=== PATIENT | male | born 1995 | race Caucasian/White ===

== ENCOUNTER 2022-10-09 16:21 | Emergency (ER) | payer SELFPAY ==
[2022-10-09 16:26] VITALS: BP 155/89; PULSE 98; RESP 18; TEMP 36.7; O2SAT 99
--- NOTE | 2022-10-09 16:27 | ED_ITS ---
HPI - General Adult General Chief complaint: Wound/Laceration Stated complaint: Hand laceration Time Seen by Provider: 10/09/22 16:25 History of Present Illness HPI narrative: Sabino is a 27M with a PM of ADD and KELLEN that presented to the ED after sustaining a laceration from a stainless steel burring tool on his left hand. He has no other injuries. He still has sensation and can move all of his fingers. He is due for a tetanus vaccine. Related Data Allergies Allergy/AdvReac Type Severity Reaction Status Date / Time No Known Allergies Allergy Verified 10/09/22 16:24 Review of Systems Review of Systems: All systems reviewed & are unremarkable except as noted in HPI and below PMFSH Past Medical History Medical History Dyslipidemia KELLEN (obstructive sleep apnea) Family History Family History Mother No problems noted. Father No problems noted. Social History Social History Smoking status: Never smoker Alcohol intake: never Drinks per week: 6 Substance use: never Living arrangements: with family Occupation/Education: occupation Gender identity (if verbalized by the patient): Male Exam Const: General: healthy appearing and no acute distress Nutritional Appearance: well nourished Orientation/consciousness: patient oriented x3 HENMT: Head: normal to inspection Ears: external ears normal Face/Nose/Sinus: Normal external nose present Eyes: Conjunctivae: conjunctivae normal Pupils: Equal, round and reactive pupils present Neck: Neck: normal visual inspection Chest: Chest palpation & inspection: normal inspection of the chest Resp: Effort & Inspection: normal respiratory effort Cardio: Rate: regular rate Skin: Other: 3cm linear laceration on the palm of th e left hand Neuro: General: patient oriented x3 and moves all extremities Extrem: General: normal to inspection Psych: Mental Status: mental status grossly normal Procedures Laceration Laceration 1: Date: 10/09/22 Site: hand (left palm) Side (If applicable): left Size (cm): 3 Description: linear Depth: simple, single layer Local Anesthetic: lidocaine 1% and with epi Amount of anesthesia used (mL): 1 Pre-repair: irrigated extensively ====== Skin Level ====== ====== Subcutaneous Layer ====== ====== Muscle Layer ====== ====== Tendon Layer ====== Discharge Plan Discharge Clinical Impression: Laceration Patient Disposition: Home, Self-Care Condition: Stable Instructions: Care For Your Stitches (ED) Prescriptions: No Action dextroamphetamine-amphetamine [Adderall] 20 mg tablet 30 mg PO DAILY Qty: 45 0RF Follow-up/Referrals: UNKNOWN,DOCTOR [Primary Care Provider] -
[2022-10-09] MEDS: LIDO 1%/EPINEPHRINE 1:100,000 20 ML VIAL INFILTRATE (16:36)
[2022-10-09] MEDS: TETANUS,DIPHTHERIA,AC PERTUSSIS ADULT 0.5 ML (ADACEL) IM (16:37)
== END 2022-10-09 17:00 | disposition home or self-care (01) ==
LOC: CHSED 17:08
PROVIDERS: Emergency Provider Family Medicine
DX: S61.412A Laceration without foreign body of left hand, initial encounter (principal); W27.8XXA Contact with other nonpowered hand tool, initial encounter; E78.5 Hyperlipidemia, unspecified; G47.33 Obstructive sleep apnea (adult) (pediatric); Z23 Encounter for immunization
CPT/HCPCS: 12002; 90471; 90715; 99282